=== PATIENT | male | born 1970 | race Caucasian/White ===

== ENCOUNTER → 2021-02-28 13:28 | Outpatient (BNVA) | payer OTHER, SELFPAY | PROVIDERS: Referring Provider Physician Assistant Medical; Visit Provider Podiatrist Foot & Ankle Surgery | DX: M79.671 Pain in right foot (principal) | CPT/HCPCS: 73630 ==

== ENCOUNTER 2024-01-09 17:13 | Emergency (ER) | payer OTHER, SELFPAY ==
[2024-01-09 17:43] VITALS: BP 149/88; PULSE 85; RESP 17; TEMP 36.7; O2SAT 97; BMI 28.7
[2024-01-09 18:19] VITALS: PULSE 78; RESP 18; O2SAT 98
--- NOTE | 2024-01-09 18:27 | XRR_ITS ---
PROCEDURE INFORMATION: Exam: XR Chest Exam date and time: 01/09/2024 6:35 PM Age: 53 years old Clinical indication: Cough and shortness of breath; Patient HX: Cough; Congestion; Fever TECHNIQUE: Imaging protocol: Radiologic exam of the chest. Views: 1 view. COMPARISON: No relevant prior studies available. FINDINGS: Lungs: Unremarkable. No consolidation. Pleural spaces: Unremarkable. No pleural effusion. No pneumothorax. Heart/Mediastinum: Unremarkable. No cardiomegaly. Bones/joints: Unremarkable. XR/XR chest 1V portable [id number] IMPRESSION: No acute findings.
--- NOTE | 2024-01-09 18:32 | ED_ITS ---
Documented by User: CAROLE Fried 01/09/24 20:08 HPI - URI/Sore Throat 2 General: Chief Complaint: Upper Respiratory Infection Stated Complaint: cough, fever Time Seen by Provider: 01/09/24 18:18 Source: patient Mode of arrival: ambulatory Limitations: no limitations History of Present Illness: Patient is a 53-year-old male presented to the emergency department complaining of shortness of breath onset 1 week. Patient notes that his symptoms began as a sinus infection with cough runny nose and some congestion. However, he now notes that the symptoms have gravitated downwards into his chest as he is reporting some shortness of breath and is now coughing up a greenish-yellow mucus. He states that he began taking Augmentin yesterday, as he had some leftover from a previous infection. He has not gotten any relief from this. Patient has no history of COPD or asthma. He is now on oxygen regularly. No chest pain reported, fevers, or any other symptoms at this time. On arrival patient's oxygen saturation was 97% on room air and he was afebrile. Associated symptoms: Reports nasal congestion; Deny abdominal pain, chills, chest pain, diarrhea, ear or mastoid pain, fever(s), headache(s), nausea or vomiting Review of Systems 2 General: Reports: 10 or more systems reviewed and unremarkable except in HPI and below Const: Denies: fever(s), chills or fatigue Eyes: Denies: change in vision ENMT: Reports: nasal discharge and nasal congestion; Denies: throat pain or ear or mastoid pain Card: Denies: chest pain, palpitations, swelling of feet/ankles or lightheadedness Resp: Reports: dyspnea, productive cough and wheezing GI: Denies: abdominal pain, nausea, vomiting, diarrhea or constipation : Denies: flank pain, difficulty urinating, dysuria or urinary frequency Musc: Denies: neck pain, back pain or joint pain Skin/Breast: Denies: rash Neuro: Denies: headache(s), numbness in extremities or weakness in extremities PFSH ED 2 PFSH: Medical History Femoral vein injury Surgical History Hx of fasciotomy Social History Smoking and tobacco/nicotine status: current every day tobacco/nicotine user cigarettes Packs smoked per day: 1 Years cigarettes smoked: 20 Second hand smoke exposure: Yes Alcohol intake: current Alcohol intake frequency: holidays/special occasions only Alcohol type: beer Substance/Drug Use: never Physical Exam 2 Const: COMMON NORMALS: no acute distress, patient oriented x3 and no limitations GENERAL APPEARANCE: cooperative, comfortable and well developed ORIENTATION/CONSCIOUSNESS: Yes awake, Yes oriented to person, Yes oriented to place and Yes oriented to time HENMT: COMMON NORMALS: normocephalic, atraumatic and hearing grossly normal bilaterally HEAD & SCALP: normocephalic and atraumatic Eye: COMMON NORMALS: Equal, round and reactive pupils present, EOMs intact bilaterally and conjunctivae normal CONJUNCTIVA: Yes conjunctivae normal P UPIL: Yes Equal, round and reactive pupils present Neck/C-Spine: COMMON NORMALS: full ROM, supple and no JVD Resp: COMMON NORMALS: normal respiratory effort, No retractions and No use of accessory muscles EFFORT & INSPECTION: Yes able to speak in complete sentences AUSCULTATION: wheezes expiratory wheezes and throughout Cardio: COMMON NORMALS: no JVD, regular rate, regular rhythm, No clicks present (Cardio), No murmurs present (Cardio) and No rub (Cardio) RATE: r egular rate RHYTHM: regular rhythm GI: COMMON NORMALS: Normal to inspection, nondistended, normoactive bowel sounds present, Soft to palpation and non-tender AUSCULTATION: Yes normoactive bowel sounds PALPATION: Yes Soft to palpation RECTAL EXAM: Yes deferred : COMMON NORMALS: Yes no CVA tenderness BLADDER/KIDNEY EXAM: Yes no CVA tenderness Back/Pelvis: COMMON NORMALS: no CVA tenderness, thoracic and lumbar spine normal to inspection, no thoracic nor lumbar tenderness and thoraco-lumbar ROM normal Extremity: COMMON NORMALS: normal to inspection, full ROM and capillary refill normal Neuro: COMMON NORMALS: patient oriented x3, moves all extremities, no focal motor deficits and no sensory deficits noted SENSORIUM/ORIENTATION: Yes oriented to person, Yes oriented to place and Yes oriented to time Psych: COMMON NORMALS: mental status grossly normal and Normal thought process present THOUGHT PROCESS: Normal thought process present Skin: COMMON NORMALS: no rashes or lesions noted GENERAL SKIN EXAM: no rashes or lesions noted Course 2 Vital Signs: Vital signs: Vital Signs Temperature 98.1 F 01/09/24 20:21 Pulse Rate 84 01/09/24 20:21 Respiratory Rate 14 01/09/24 20:21 Blood Pressure 143/86 01/09/24 20:21 Pulse Oximetry 96 01/09/24 20:21 Oxygen Delivery Me thod Room Air 01/09/24 18:41 MDM - URI/Sore Throat Medical Decision Making This patient seen and evaluated in the emergency department today due to 1 week of worsening shortness of breath. On arrival patient's vitals normal as he is afebrile and satting 97% on room air. Vitals have remained stable throughout his ED course. Examination revealed some diffuse end expiratory wheezing with active coughing. Chest x-ray did not show any acute signs of pneumonia. Laboratory evaluation negative. Patient was given IV Solu-Medrol as well as a DuoNeb, and upon recheck states he felt much better. I decided to treat the patient empirically for an acute bronchitis infection with a short Z-Nadeem, but will also prescribe him a short course of steroids as well as an albuterol inhaler to use as needed for a mild reactive airway disease exacerbation. I informed him that he needs to follow-up with his primary care provider for further evaluation to determine if this becomes a chronic issue for him. Will give him dose of steroid and antibiotic prior to discharge due to pharmacy is closed tomorrow. Patient agrees with this plan and return precautions are given. Lab Data I reviewed the patient's lab results. 01/09/24 18:49 01/09/24 18:49 Radiology Impressions Chest X-Ray 01/09/24 18:27 IMPRESSION: No acute findings. Laboratory Results WBC 5.84 10^3/uL (3.29-11.43) 01/09/24 18:49 RBC 4.57 10^6/uL (3.85-5.65) 01/09/24 18:49 Hgb 14.00 g/dL (11.27-16.99) 01/09/24 18:49 Hct 41.7 % (37-53) 01/09/24 18:49 MCV 91.2 fl (82-101) 01/09/24 18:49 MCH 30.6 pg (27-33) 01/09/24 18:49 MCHC 33.6 g/dL (30-55) 01/09/24 18:49 RDW 14.0 % (12.1-15.1) 01/09/24 18:49 Plt Count 209 10^3/cmm (157-399) 01/09/24 18:49 MPV 8.3 fL (7.4-10.4) 01/09/24 18:49 Neut % (Auto) 74.1 % 01/09/24 18:49 Lymph % (Auto) 12.8 % 01/09/24 18:49 [place] % (Auto) 12.2 % 01/09/24 18:49 Eos % (Auto) 0.3 % 01/09/24 18:49 Baso % (Auto) 0.3 % 01/09/24 18:49 Neut # (Auto) 4.32 10^3/uL (1.8-7.7) 01/09/24 18:49 Lymph # (Auto) 0.8 10^3/uL (0.8-4.8) 01/09/24 18:49 [place] # (Auto) 0.7 10^3/uL (0.2-0.9) 01/09/24 18:49 Eos # (Auto) 0.0 10^3/uL (0.0-0.8) 01/09/24 18:49 Baso # (Auto) 0.0 10^3/uL (0.0-0.1) 01/09/24 18:49 Nucleated RBC % (auto) 0 % 01/09/24 18:49 Nucleated RBCs # 0.0 /100WBC 01/09/24 18:49 Sodium 136 mmol/L (136-145) 01/09/24 18:49 Potassium 4.8 mmol/L (3.5-5.1) 01/09/24 18:49 Chloride 100 mmol/L (98-107) 01/09/24 18:49 Carbon Dioxide 24 mmol/L (22-29) 01/09/24 18:49 Anion Gap 16.8 (5-19) 01/09/24 18:49 BUN 8 mg/dL (6-20) 01/09/24 18:49 Creatinine 0.8 mg/dL (0.7-1.2) 01/09/24 18:49 GFR Calculation 100.4 mL/min (90-130) 01/09/24 18:49 Glucose 121 mg/dL (65-115) H 01/09/24 18:49 Calculated Osmolality 282 mOsm/kg (285-295) L 01/09/24 18:49 Calcium 8.8 mg/dL (8.5-10.5) 01/09/24 18:49 Total Bilirubin 0.7 mg/dL (0.15-1.2) 01/09/24 18:49 AST 16 U/L (0-40) 01/09/24 18:49 ALT 9 U/L (0-41) 01/09/24 18:49 Alkaline Phosphatase 81 U/L (40-130) 01/09/24 18:49 Total Protein 7.2 g/dL (6.6-8.7) 01/09/24 18:49 Albumin 4.3 g/dL (3.5-5.2) 01/09/24 18:49 Globulin 2.9 g/dL (1.3-4.6) 01/09/24 18:49 All radiology interpretation(s) finalized by discharge Discharge Plan Discharge Patient Disposition: Home Clinical Impression: Acute bronchitis, bacterial Reactive airway disease Qualifiers: Asthma severity: mild Asthma persistence: intermittent Asthma complication type: with acute exacerbation Qualified Code(s): J45.21 - Mild intermittent asthma with (acute) exacerbation Condition: Stable Prescriptions: New albuterol sulfate 90 mcg/actuation aerosol powdr breath activated 1 inh inhalation Q4H PRN (Reason: shortness of breath or wheezing) Qty: 1 0RF No Action hydrocodone-acetaminophen 10-325 mg/15 mL(15 mL) solution 15 ml PO Q8H PRN Discharge Orders: Discharge ED (Routine); Ordered 01/09/24 Ordered By: Matt Guerrero Discharge Diet: Usual diet Discharge Activity: Increase activity as tolerated Patient Instructions: Acute Bronchitis (ED), Reactive Airways Disease (ED) Activity Restrictions/Additional Instructions: Azithromycin as prescribed. Prednisone as prescribed. Albuterol inhaler as needed. Plenty of fluids. Follow-up with your primary care provider. Return with any new or concerning symptoms. Coding Level of Care Code ED Environmental Designer for [facility] Documented by User: Jatinder Butterfield DO 01/15/24 14:18 HPI - URI/Sore Throat 2 General: Chief Complaint: Upper Respiratory Infection Stated Complaint: cough, fever Time Seen by Provider: 01/09/24 18:18 [facility] ED 2 PFSH: Medical History Femoral vein injury Surgical History Hx of fasciotomy Social History Smoking and tobacco/nicotine status: current every day tobacco/nicotine user cigarettes Packs smoked per day: 1 Years cigarettes smoked: 20 Second hand smoke exposure: Yes Alcohol intake: current Alcohol intake frequency: holidays/special occasions only Alcohol type: beer Substance/Drug Use: never Course 2 Vital Signs: Vital signs: Vital Signs Temperature 98.1 F 01/09/24 20:21 Pulse Rate 84 01/09/24 20:21 Respiratory Rate 14 01/09/24 20:21 Blood Pressure 143/86 01/09/24 20:21 Pulse Oximetry 96 01/09/24 20:21 Oxygen Delivery Me thod Room Air 01/09/24 18:41 MDM - URI/Sore Throat Medical Decision Making This patient seen and evaluated in the emergency department today due to 1 week of worsening shortness of breath. On arrival patient's vitals normal as he is afebrile and satting 97% on room air. Vitals have remained stable throughout his ED course. Examination revealed some diffuse end expiratory wheezing with active coughing. Chest x-ray did not show any acute signs of pneumonia. Laboratory evaluation negative. Patient was given IV Solu-Medrol as well as a DuoNeb, and upon recheck states he felt much better. I decided to treat the patient empirically for an acute bronchitis infection with a short Z-Nadeem, but will also prescribe him a short course of steroids as well as an albuterol inhaler to use as needed for a mild reactive airway disease exacerbation. I informed him that he needs to follow-up with his primary care provider for further evaluation to determine if this becomes a chronic issue for him. Will give him dose of steroid and antibiotic prior to discharge due to pharmacy is closed tomorrow. Patient agrees with this plan and return precautions are given. Chart reviewed Lab Data 01/09/24 18:49 01/09/24 18:49 Radiology Impressions Chest X-Ray 01/09/24 18:27 IMPRESSION: No acute findings. Laboratory Results WBC 5.84 10^3/uL (3.29-11.43) 01/09/24 18:49 RBC 4.57 10^6/uL (3.85-5.65) 01/09/24 18:49 Hgb 14.00 g/dL (11.27-16.99) 01/09/24 18:49 Hct 41.7 % (37-53) 01/09/24 18:49 MCV 91.2 fl (82-101) 01/09/24 18:49 MCH 30.6 pg (27-33) 01/09/24 18:49 MCHC 33.6 g/dL (30-55) 01/09/24 18:49 RDW 14.0 % (12.1-15.1) 01/09/24 18:49 Plt Count 209 10^3/cmm (157-399) 01/09/24 18:49 MPV 8.3 fL (7.4-10.4) 01/09/24 18:49 Neut % (Auto) 74.1 % 01/09/24 18:49 Lymph % (Auto) 12.8 % 01/09/24 18:49 [place] % (Auto) 12.2 % 01/09/24 18:49 Eos % (Auto) 0.3 % 01/09/24 18:49 Baso % (Auto) 0.3 % 01/09/24 18:49 Neut # (Auto) 4.32 10^3/uL (1.8-7.7) 01/09/24 18:49 Lymph # (Auto) 0.8 10^3/uL (0.8-4.8) 01/09/24 18:49 [place] # (Auto) 0.7 10^3/uL (0.2-0.9) 01/09/24 18:49 Eos # (Auto) 0.0 10^3/uL (0.0-0.8) 01/09/24 18:49 Baso # (Auto) 0.0 10^3/uL (0.0-0.1) 01/09/24 18:49 Nucleated RBC % (auto) 0 % 01/09/24 18:49 Nucleated RBCs # 0.0 /100WBC 01/09/24 18:49 Sodium 136 mmol/L (136-145) 01/09/24 18:49 Potassium 4.8 mmol/L (3.5-5.1) 01/09/24 18:49 Chloride 100 mmol/L (98-107) 01/09/24 18:49 Carbon Dioxide 24 mmol/L (22-29) 01/09/24 18:49 Anion Gap 16.8 (5-19) 01/09/24 18:49 BUN 8 mg/dL (6-20) 01/09/24 18:49 Creatinine 0.8 mg/dL (0.7-1.2) 01/09/24 18:49 GFR Calculation 100.4 mL/min (90-130) 01/09/24 18:49 Glucose 121 mg/dL (65-115) H 01/09/24 18:49 Calculated Osmolality 282 mOsm/kg (285-295) L 01/09/24 18:49 Calcium 8.8 mg/dL (8.5-10.5) 01/09/24 18:49 Total Bilirubin 0.7 mg/dL (0.15-1.2) 01/09/24 18:49 AST 16 U/L (0-40) 01/09/24 18:49 ALT 9 U/L (0-41) 01/09/24 18:49 Alkaline Phosphatase 81 U/L (40-130) 01/09/24 18:49 Total Protein 7.2 g/dL (6.6-8.7) 01/09/24 18:49 Albumin 4.3 g/dL (3.5-5.2) 01/09/24 18:49 Globulin 2.9 g/dL (1.3-4.6) 01/09/24 18:49 Discharge Plan Discharge Patient Disposition: Home Clinical Impression: Acute bronchitis, bacterial Reactive airway disease Qualifiers: Asthma severity: mild Asthma persistence: intermittent Asthma complication type: with acute exacerbation Qualified Code(s): J45.21 - Mild intermittent asthma with (acute) exacerbation Condition: Stable Prescriptions: New albuterol sulfate 90 mcg/actuation aerosol powdr breath activated 1 inh inhalation Q4H PRN (Reason: shortness of breath or wheezing) Qty: 1 0RF No Action hydrocodone-acetaminophen 10-325 mg/15 mL(15 mL) solution 15 ml PO Q8H PRN Discharge Orders: Discharge ED (Routine); Ordered 01/09/24 Ordered By: Matt Guerrero Discharge Diet: Usual diet Discharge Activity: Increase activity as tolerated Patient Instructions: Acute Bronchitis (ED), Reactive Airways Disease (ED) Activity Restrictions/Additional Instructions: Azithromycin as prescribed. Prednisone as prescribed. Albuterol inhaler as needed. Plenty of fluids. Follow-up with your primary care provider. Return with any new or concerning symptoms. Coding Level of Care Code ED Environmental Designer for Annabel Wang
[2024-01-09] MEDS: ipratropium-albuterol 3 mL Neb INHALATION (18:40)
[2024-01-09 18:41] VITALS: PULSE 89; RESP 18; O2SAT 95
[2024-01-09 18:47] VITALS: PULSE 92
[2024-01-09 18:56] LABS: Basophils % 0.3 %; Eosinophils % 0.3 %; Hematocrit 41.7 % (37-53); Lymphocytes # 0.8 10^3/uL (0.8-4.8); Lymphocytes % 12.8 %; Mean Corpuscular HGB Conc 33.6 g/dL (30-55); Mean Corpuscular Hemoglobin 30.6 pg (27-33); Mean Corpuscular Volume 91.2 fl (82-101); Mean Platelet Volume 8.3 fL (7.4-10.4); Monocytes # 0.7 10^3/uL (0.2-0.9); Monocytes % 12.2 %; Neutrophils # 4.32 10^3/uL (1.8-7.7); Neutrophils % 74.1 %; Nucleated Red Blood Cells % 0 %; Platelet Count 209 10^3/cmm (157-399); Red Blood Count 4.57 10^6/uL (3.85-5.65); White Blood Count 5.84 10^3/uL (3.29-11.43)
[2024-01-09] MEDS: methylPREDNISolone sod succ 125 mg/2 mL INJ IVP (19:07)
[2024-01-09 19:28] LABS: Alanine Aminotransferase 9 U/L (0-41); Albumin Level 4.3 g/dL (3.5-5.2); Alkaline Phosphatase 81 U/L (40-130); Anion Gap 16.8 (5-19); Aspartate Amino Transferase 16 U/L (0-40); Blood Urea Nitrogen 8 mg/dL (6-20); Calcium 8.8 mg/dL (8.5-10.5); Carbon Dioxide 24 mmol/L (22-29); Chloride 100 mmol/L (98-107); Creatinine Clr Calc Pharmacy 118.1842; Globulin 2.9 g/dL (1.3-4.6); Glomerular Filtration Rate 100.4 mL/min (90-130); Glucose 121 mg/dL (65-115); Osmolality Calculated 282 mOsm/kg (285-295); Potassium 4.8 mmol/L (3.5-5.1); Sodium 136 mmol/L (136-145); Total Bilirubin 0.7 mg/dL (0.15-1.2); Total Protein 7.2 g/dL (6.6-8.7)
[2024-01-09] MEDS: azithromycin 250 mg Tablet 500 MG PO (20:16)
[2024-01-09] MEDS: predniSONE 20 mg Tablet 60 MG PO (20:17)
[2024-01-09 20:21] VITALS: BP 143/86; PULSE 84; RESP 14; TEMP 36.7; O2SAT 96
== END 2024-01-09 20:22 | disposition home or self-care (01) ==
PROVIDERS: Emergency Provider Physician Assistant
DX: J20.8 Acute bronchitis due to other specified organisms (principal); J45.909 Unspecified asthma, uncomplicated; F17.210 Nicotine dependence, cigarettes, uncomplicated
CPT/HCPCS: 36415; 71045; 80053; 85025; 94640; 96374; 99284; J2930; J7512; Q0144